=== PATIENT | male | born 1940 | race Caucasian/White ===

== ENCOUNTER → 2018-03-10 | Outpatient (CLI) | payer MEDICARE ==
[~2018-03-10] MED LIST: ACET325T14 PO; ASPI-496 PO; ATOR40TA PO; CELE200C PO; DUTA0.5C PO; FEXO180T72 PO; GABA300C PO; LANS30CA PO; OXYC1TAB7 PO; SENN1TAB7 PO; TAMS-11 PO; VALS1TAB15 PO
== END | disposition home or self-care (01) ==
LOC: CVU 15:52
PROVIDERS: ATTEND Internal Medicine Cardiovascular Disease
DX: I65.23 Occlusion and stenosis of bilateral carotid arteries (principal); I10 Essential (primary) hypertension; I73.9 Peripheral vascular disease, unspecified; E78.2 Mixed hyperlipidemia
CPT/HCPCS: 93880

== ENCOUNTER 2019-10-04 08:01 | Outpatient (CLI) | payer MEDICARE ==
[~2019-10-04 08:01] MED LIST changes: +SENN-177 PO; -SENN1TAB7 PO
== END 2019-10-04 23:59 | disposition home or self-care (01) ==
LOC: ROC 08:01
PROVIDERS: ATTEND Radiology Radiation Oncology
DX: C77.0 Secondary and unspecified malignant neoplasm of lymph nodes of head, face and neck (principal); E78.00 Pure hypercholesterolemia, unspecified; I10 Essential (primary) hypertension; Z90.49 Acquired absence of other specified parts of digestive tract
CPT/HCPCS: G0463

== ENCOUNTER → 2019-10-10 | Outpatient (CLI) | payer MEDICARE ==
[2019-10-10 13:19] LABS: CREATININE 1.24 mg/dL (0.7-1.3)
== END | disposition home or self-care (01) ==
LOC: CFH 11:09
PROVIDERS: ATTEND Radiology Radiation Oncology
DX: T50.8X4A Poisoning by diagnostic agents, undetermined, initial encounter (principal); Y92.89 Other specified places as the place of occurrence of the external cause
CPT/HCPCS: 36415; 82565; 84520

== ENCOUNTER → 2019-10-31 | Outpatient (CLI) | payer MEDICARE ==
[~2019-10-31] MED LIST changes: +OMNIPAQUE 350 MG/ML, 100ML BOTTLE ONE
== END | disposition home or self-care (01) ==
LOC: CFH 10:23
PROVIDERS: ATTEND Radiology Radiation Oncology
DX: C77.0 Secondary and unspecified malignant neoplasm of lymph nodes of head, face and neck (principal); I10 Essential (primary) hypertension; E04.1 Nontoxic single thyroid nodule; M47.816 Spondylosis without myelopathy or radiculopathy, lumbar region
CPT/HCPCS: 70491; Q9967

== ENCOUNTER 2020-01-15 08:26 | Outpatient (CLI) | payer MEDICARE ==
[~2020-01-15 08:26] MED LIST changes: -OMNIPAQUE 350 MG/ML, 100ML BOTTLE ONE
[2020-01-15] MEDS ORDERED: OMNIPAQUE 350 MG/ML, 100ML BOTTLE ONE (14:55)
== END 2020-01-15 23:59 | disposition home or self-care (01) ==
LOC: CFH 08:26
PROVIDERS: ATTEND Radiology Radiation Oncology
DX: C77.0 Secondary and unspecified malignant neoplasm of lymph nodes of head, face and neck (principal)
CPT/HCPCS: 70491; 82565; Q9967

== ENCOUNTER 2020-01-17 09:14 | Outpatient (CLI) | payer MEDICARE | END 2020-01-17 23:59 | disposition home or self-care (01) | LOC: ROC 09:14 | PROVIDERS: ATTEND Radiology Radiation Oncology | DX: Z08 Encounter for follow-up examination after completed treatment for malignant neoplasm (principal); C61 Malignant neoplasm of prostate; C77.0 Secondary and unspecified malignant neoplasm of lymph nodes of head, face and neck | CPT/HCPCS: G0463 ==